=== PATIENT | male | born 1965 | race Caucasian/White ===

== ENCOUNTER 2019-02-25 14:06 | Emergency (ER) | payer MEDICAID ==
[~2019-02-25] VITALS: Ht 162.6 cm; Wt 100.2 kg
[2019-02-25 14:27] VITALS: BP 102/76
--- NOTE | 2019-02-25 14:35 | NUR ---
Note undone in EDM - 02/25/19 at 1457 by MED BIB SELF. AAO X4. MIDDLE LOW BACK PAIN, BURNING WITH URINATION, TESTICULAR ITCHING/TINGLING DISCOLORATION PER PT. RIGHT WRIST FOREARM ITCHING/DARK DISCOLORATION, AND CONSTANT FACIAL TINGLING X2 WEEKS. PT AAOX4, PERRLA BRISK 3 MM. NO FACIAL DROOP. CLEAR SPEECH. BREATHING EVEN AND UNLABORED. EQUAL SUE STRENGTH TO UPPER AND LOWER EXTREMITIES.
--- NOTE | 2019-02-25 14:35 | NUR ---
BIB SELF. AAO X4. BURNING WITH URINATION, TESTICULAR ITCHING/TINGLING DISCOLORATION PER PT. RIGHT WRIST FOREARM ITCHING/DARK DISCOLORATION, AND CONSTANT FACIAL TINGLING X2 WEEKS. PT AAOX4, PERRLA BRISK 3 MM. NO FACIAL DROOP. CLEAR SPEECH. BREATHING EVEN AND UNLABORED. EQUAL SUE STRENGTH TO UPPER AND LOWER EXTREMITIES.
--- NOTE | 2019-02-25 14:53 | NUR ---
DR GRIFFIN AT BEDSIDE FOR PT EVALUATION
[2019-02-25 15:15] VITALS: BP 104/76
--- NOTE | 2019-02-25 15:15 | NUR ---
Patient discharged with v/s stable. Written and verbal after care instructions given and explained. Patient alert, oriented and verbalized understanding of instructions. Ambulatory with steady gait. All questions addressed prior to discharge. ID band removed. Patient advised to follow up with PMD. Rx of Clotrimazole 1% topical cream, [place] 5 mg-325 mg, Ibuprofen given. Patient educated on indication of medication including possible reaction and side effects. Opportunity to ask questions provided and answered.
== END 2019-02-25 15:15 | disposition home or self-care (01) ==
LOC: MED 14:06
DX: B35.4 Tinea corporis (principal)
CPT/HCPCS: 81002; 99283

== ENCOUNTER 2019-06-02 06:26 | Emergency (ER) | payer MEDICAID ==
[~2019-06-02] VITALS: Ht 157.5 cm; Wt 99.3 kg
[2019-06-02 06:33] VITALS: BP 128/74
[2019-06-02] MEDS ORDERED: DIAZEPAM 5 MG TAB PO ONE (07:20)
[2019-06-02] MEDS ORDERED: KETOROLAC 30 MG/ML VIAL IM ONE (07:20)
[2019-06-02 08:18] VITALS: BP 127/64
== END 2019-06-02 08:18 | disposition home or self-care (01) ==
LOC: MED 06:26
DX: M62.838 Other muscle spasm (principal); M65.311 Trigger thumb, right thumb
CPT/HCPCS: 29125; 72040; 73140; 96372; 99283; J1885

== ENCOUNTER 2019-06-19 12:02 | Emergency (ER) | payer MEDICAID ==
[~2019-06-19] VITALS: Ht 160 cm; Wt 100.4 kg
[2019-06-19 12:12] VITALS: BP 111/79
[2019-06-19] MEDS ORDERED: KETOROLAC 60 MG/2 ML VIAL IM ONE (12:20)
[2019-06-19 14:33] VITALS: BP 116/66
== END 2019-06-19 14:33 | disposition home or self-care (01) ==
LOC: MED 12:02
DX: M54.5 Low back pain (principal); M54.6 Pain in thoracic spine; M79.18 Myalgia, other site
CPT/HCPCS: 81002; 96372; 99283; J1885